=== PATIENT | male | born 1970 | race Caucasian/White ===

== ENCOUNTER → 2021-01-29 08:52 | Outpatient (BNVA) | payer OTHER, SELFPAY | PROVIDERS: PCP Internal Medicine; Visit Provider Internal Medicine Cardiovascular Disease | DX: R07.9 Chest pain, unspecified (principal); R00.2 Palpitations; E78.5 Hyperlipidemia, unspecified | CPT/HCPCS: 93005 ==

== ENCOUNTER → 2021-02-03 07:37 | Outpatient (REF) | payer OTHER, SELFPAY ==
--- NOTE | 2021-02-03 07:40 | CA_ITS ---
Transthoracic Echocardiogram Patient (Last, First, Middle): Javier Cole, Gender: Male Date of : 1970 Age: 50 Procedure Date: 02/03/2021 Procedure Type: Transthoracic Echocardiogram Location: OP Height: 167.64 cm Weight: 74.84 kg BSA: 1.84 m2 Heart Rate: bpm BP: 122 / 60 mmHg Chief Lifestyle Officer: Referring MD: Brandon Cotter MD Symptoms: R07.9 - Chest pain, unspecified Study Quality: Good ECG Rhythm: Sinus Conclusions: - The left ventricular systolic function is normal. The visually estimated ejection fraction is between 60-65%. - No obvious valvular pathology seen on this study. Findings Left Ventricle Normal left ventricular cavity size. There is normal left ventricular wall thickness. The left ventricular systolic function is normal. The visually estimated ejection fraction is between 60-65%. There is no evidence of regional wall motion abnormalities. Diastolic function is normal for age. Right Ventricle Normal right ventricular cavity size and systolic function. Atria Both atria are normal in size. Aortic Valve There is a normal trileaflet aortic valve. There is no aortic valve stenosis. There is no aortic valve regurgitation. Mitral Valve The mitral valve appears normal. There is trace mitral valve regurgitation. There is no mitral valve stenosis. Pulmonic Valve The pulmonic valve was not well visualized. Tricuspid Valve Normal tricuspid valve structure. There is trace tricuspid valve regurgitation. The pulmonary artery systolic pressure is normal. Great Vessels The aortic annulus, sinuses of valsalva, and asc aorta are normal in size. Venous The inferior vena cava is normal in size and collapses greater than 50% with inspiration. Pericardium/Pleural There is no evidence of pericardial effusion. Prior Study Comparison No prior study available for comparison. Recommendations, Care & Conclusions No obvious valvular pathology seen on this study. Measurements 2D Linear Measurements IVSd: 1.08 0.6-0.9/0.6-1.0 cm LVIDd: 4.50 3.9-5.3/4.2-5.9 cm LVIDd Index: 2.45 2.4-3.2/2.2-3.1 cm/m2 LVIDs: 2.53 2.0-3.6 cm LVPWd: 1.00 0.7-1.1 cm Ao Root: 3.40 2.1-3.5 cm LA Diam: 3.80 2.7-3.8/3.0-4.0 cm LAIDs Index: 2.07 1.5-2.3 cm/m2 LV Mass: 201.52 67-162/88-224 g LV Mass Index: 109.52 43-95/49-115 g/m2 LVOT Diam: 2.30 3.0+(-)1.3 cm Mitral Valve MV Pk E: 0.83 MV PK A: 0.73 MV Decel Time: 194.00 E/A: 1.10 E'Lateral: 13.40 E'Medial: 10.30 E/E' Med: 8.00 E/E' Lat: 6.20 PHT: 57.00 MVA PHT: 3.86 Decel [place]win: 4.28 Aortic Valve AoV Pk Rakesh: 1.46 AoV Mn Rakesh: 0.99 AoV VTI: 0.32 AoV Pk Grad: 9.00 Aov Mn Grad: 5.00 LADY Cont.VTI: 2.59 LVOT LVOT Pk Rakesh: 1.00 LVOT Mn Rakesh: 0.63 LVOT VTI: 0.20 LVOT Pk Grad: 4.00 LVOT Mn Grad: 2.00 LVOT Diam: 2.30 LVOT Area: 4.15 Diastolic Function MV Pk E: 0.83 MV Pk A: 0.73 E/A: 1.10 E'Medial: 10.30 E/E' Med: 8.00 E' Laterial: 13.40 E/E' Lat: 6.20 Tricuspid Valve TR Pk Rakesh: 1.97 TR Pk Grad: 16.00 RA Press: 3.00 RVSP: 19.00 Great Vessels Aorta Ao Root-2D: 3.40 2.0-3.7 cm Ao Asc: 3.50 2.1-3.4 cm Pulmonary Valve PV Pk Rakesh: 0.96 Peak PV Grad: 4.00 Updated in Other Vendor System with Status of Final Sherwin Valdivia MD electronically signed on 02/03/2021 1:16:50 PM with status of Final
== END ==
LOC: HO.CARD 07:37
PROVIDERS: PCP Internal Medicine; Visit Provider Internal Medicine Cardiovascular Disease
DX: R07.9 Chest pain, unspecified (principal)
CPT/HCPCS: 93306

== ENCOUNTER → 2021-02-17 13:20 | Outpatient (REF) | payer OTHER, SELFPAY ==
--- NOTE | 2021-02-17 13:27 | HM_ITS ---
TEST PERFORMED: Cardiac event monitoring. REQUESTING PHYSICIAN: Dr. Cotter. INDICATION: Palpitations. ENROLLMENT PERIOD: 02/17/2021 to 03/19/2021 - 30 days. FINDINGS: In the above monitoring period, the underlying rhythm was sinus. From a sample strip, rate was 98/min. Overall, there is no evidence of any significant ectopy, bradyarrhythmias, or tachyarrhythmias, or essentially anything considered abnormal. There were also no symptoms reported during this time. CONCLUSION: Study shows sinus rhythm only and no evidence of any abnormalities. Sherwin Valdivia MD HS/MODL / [id number]
== END ==
LOC: HO.CARD 13:20
PROVIDERS: PCP Internal Medicine; Visit Provider Internal Medicine Cardiovascular Disease
DX: R07.9 Chest pain, unspecified (principal); R00.2 Palpitations
CPT/HCPCS: 93225; 93270; 93272

== ENCOUNTER → 2021-04-08 15:14 | Outpatient (BNVA) | payer OTHER, SELFPAY | PROVIDERS: PCP Internal Medicine; Referring Provider Internal Medicine; Visit Provider Internal Medicine Cardiovascular Disease ==

== ENCOUNTER → 2021-04-15 07:57 | Outpatient (REF) | payer OTHER, SELFPAY ==
--- NOTE | 2021-04-15 08:00 | CA_ITS ---
Acquisition Time: 2021-04-15 08:02:37 Total Exercise Time: 00:08:59 Test Indications: Palpitations Medications: ALBUTEROL Protocol: EMERITA Max HR: 155 BPM 90% of Pred: 171 BPM Max BP: 156/088 mmHG Max Work Load: 10.4 METS Exeercise stress test using Emerita protocol, total of 8 min 59 sec METS 10.40, and TAPHR up to 90 %. Pt. tolerated well, denies any anginal sx. EKG witout any arrhythmias, no ischemic changes seen during exercise or in recovery. Normotensive response to exercise. Test reviewed with Dr. Cotter. Referred By: Brandon Cotter Overread By: Ethel Gilman NP
[2021-04-15 09:54] LABS: Cholesterol 262 mg/dL; HDL Cholesterol 66 mg/dL; LDL Cholesterol Calculated 184 mg/dl; Triglycerides 61 mg/dL
[2021-04-16 11:42] LABS: CRP High Sensitivity 3.5 mg/L
== END ==
LOC: HO.CARD 07:57
PROVIDERS: Internal Medicine; Visit Provider Internal Medicine Cardiovascular Disease
DX: R07.9 Chest pain, unspecified (principal); R00.2 Palpitations; E78.5 Hyperlipidemia, unspecified; E11.9 Type 2 diabetes mellitus without complications
CPT/HCPCS: 36415; 80061; 84443; 86141; 93016; 93017; 93018

== ENCOUNTER → 2021-05-19 09:31 | Outpatient (BNVA) | payer OTHER, SELFPAY | PROVIDERS: PCP Internal Medicine; Visit Provider Internal Medicine Cardiovascular Disease ==

== ENCOUNTER 2021-07-11 08:41 | Outpatient (REF) | payer OTHER, SELFPAY ==
[2021-07-11 09:36] LABS: Cholesterol 143 mg/dL; HDL Cholesterol 58 mg/dL; LDL Cholesterol Calculated 79 mg/dl; Triglycerides 30 mg/dL
[2021-07-12 14:22] LABS: CRP High Sensitivity 1.5 mg/L
== END 2021-07-11 08:42 | disposition home or self-care (01) ==
LOC: HO.LAB 08:41
PROVIDERS: PCP Internal Medicine; Visit Provider Internal Medicine Cardiovascular Disease
DX: E78.5 Hyperlipidemia, unspecified (principal); R93.1 Abnormal findings on diagnostic imaging of heart and coronary circulation
CPT/HCPCS: 36415; 80061; 86141

== ENCOUNTER 2021-08-01 15:41 | Outpatient (REF) | payer OTHER, SELFPAY ==
--- NOTE | ~2021-08-01 | XR_ITS ---
EXAMINATION: XR CHEST CLINICAL INFORMATION: Cough COMPARISON: May 10, 2020 TECHNIQUE: 2 views of the chest were obtained. FINDINGS: No significant abnormality is noted involving the heart, lungs, mediastinum, bony thorax or soft tissues. XR/XR chest 2V IMPRESSION: No acute disease.
== END 2021-08-01 15:42 | disposition home or self-care (01) ==
LOC: HO.XRAY 15:41
PROVIDERS: PCP Internal Medicine; Visit Provider Internal Medicine
DX: R05 Cough (principal)
CPT/HCPCS: 71046